=== PATIENT | female | born 1970 | race Caucasian/White ===

== ENCOUNTER 2020-10-16 20:13 | Emergency (ER) | payer BC ==
[~2020-10-16] VITALS: Ht 167.6 cm; Wt 73.6 kg
[2020-10-16 20:18] VITALS: BP 155/84
[2020-10-16] MEDS ORDERED: ASPIRIN CHEWABLE 81 MG TABLET. PO ONE (20:30)
--- NOTE | 2020-10-16 20:32 | PHYS DOC ---
Past History Past Medical History: Asthma, COPD, Hypothyroid Past Surgical History: , Other Additional Past Surgical Histo: thyroid Alcohol Use: None Adult General Chief Complaint Chief Complaint: CHEST PAIN HPI HPI Patient is a 50-year-old female with a past medical history significant for hypothyroidism on levothyroxine who presents with chest pain. States he has been having intermittent sharp chest pain, 6 out of 10 at its worst over the last couple of months. States she cannot identify any aggravating or alleviating factors and/or triggers. 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 States that there is current episode started last night while she was watching TV and has been intermittent since then. States that currently in the emergency department she does not have the pain. States that they are kind of new to the area and do not have a primary care physician and requested some names of some local physicians. Denies any recent travel, illnesses, fevers, shortness of breath, abdominal pain, nausea, vomiting, dysuria, hematuria or blood in the stool. Denies any dyspnea on exertion, orthopnea, PND or edema. Denies any history of VTE. Review of Systems Review of Systems Review of systems otherwise unremarkable except noted in HPI Allergies Allergies Allergies Coded Allergies Type Severity Reaction Last Updated Verified No Known Drug Allergies 10/16/20 No Physical Exam Physical Exam Constitutional: Well developed, well nourished, no acute distress, non-toxic appearance. [] HENT: Normocephalic, atraumatic, bilateral external ears normal, oropharynx moist, no oral exudates, nose normal. [] Eyes: conjunctiva normal, no discharge. [] Neck: Normal range of motion, no tenderness, supple, no stridor. [] Cardiovascular:Heart rate regular rhythm, no murmur [] Lungs & Thorax: Bilateral breath sounds clear to auscultation [] Abdomen: Bowel sounds normal, soft, no tenderness, no masses, no pulsatile masses. [] Skin: Warm, dry, no erythema, no rash. [] Back: , no CVA tenderness. [] Extremities: No tenderness, no cyanosis, no clubbing, ROM intact, no edema. [] Neurologic: Alert and oriented X 3, no focal deficits noted. [] Psychologic: Affect normal, judgement normal, mood normal. [] Current Patient Data Vital Signs Vital Signs Date Time Temp Pulse Resp B/P (MAP) Pulse Ox O2 Delivery O2 Flow Rate FiO2 10/16/20 20:18 98.0 75 16 155/84 (107) 99 Room Air EKG EKG [] Radiology/Procedures Radiology/Procedures [] EXAM: CHEST 1 VIEW History: Chest pain COMPARISON: None available. TECHNIQUE: Single portable radiograph of the chest FINDINGS: The cardiac silhouette is unremarkable. The lungs are clear bilaterally. The costophrenic sulci are clear and well demarcated. IMPRESSION: No radiographic evidence of an acute cardiopulmonary process. Electronically signed by: Layton Strickland MD (10/16/2020 8:46 PM) [id number] Heart Score C/O Chest Pain: Yes HEART Score for Chest Pain: HEART Score for Chest Pain Response (Comments) Value History Slighlty/Non-Suspicious 0 ECG Normal 0 Age >45 - < 65 1 Risk Factors 1 or 2 Risk Factors 1 Troponin < Normal Limit 0 Total 2 Risk Factors: Risk Factors: DM, Current or recent (<one month) smoker, HTN, HLP, family history of CAD, obesity. Risk Scores: Risk Factors: DM, Current or recent (<one month) smoker, HTN, HLP, family history of CAD, obesity. Course & Med Decision Making Course & Med Decision Making Patient is a 50-year-old female who presents with 2 months of intermittent chest discomfort Vital signs not concerning. Physical exam noted above. EKG noted above and not concerning for STEMI. Chest x-ray not concerning. Heart score 2. Low risk Wells. PERC negative. Patient remained asymptomatic in the emergency department. Vital signs normal. Discussed all findings with family. Patient stated that she was feeling well and was ready to be discharged home. Discussed all findings with family and advised to follow-up in the morning with primary care physician to discuss ED visit and symptoms over the last couple of months and need for stress test as an outpatient. Gave strict return precautions to the ED. Patient grateful, verbalized understanding agree with plan of discharge. [] Dragon Disclaimer Dragon Disclaimer This electronic medical record was generated, in whole or in part, using a voice recognition dictation system. Departure Departure: Impression: Primary Impression: Chest pain Disposition: HOME / SELF CARE / HOMELESS Condition: GOOD Referrals: JUJU CEDENO MD Patient Instructions: Chest Pain (Nonspecific) Additional Instructions: Thank you for coming into the emergency department tonight and allowing us to take care of you. Please read all of the attached information very carefully. As discussed all your vital signs, labs and diagnostics were reassuring that at least at this time it did not appear you are having an emergency. But as discussed, this does not mean that there could be something else going on that needs follow-up. Please call your primary care physician first thing in the morning to update on ED visit and set up a follow-up as soon as you can to discuss need for further outpatient evaluation, treatment and stress test as well as echocardiogram. Please come back to the emergency department immediately with new or concerning symptoms as discussed. BANDAR LESTER MD Oct 16, 2020 20:32
--- NOTE | 2020-10-16 20:48 | RAD ---
EXAM: CHEST 1 VIEW History: Chest pain COMPARISON: None available. TECHNIQUE: Single portable radiograph of the chest FINDINGS: The cardiac silhouette is unremarkable. The lungs are clear bilaterally. The costophrenic sulci are clear and well demarcated. IMPRESSION: No radiographic evidence of an acute cardiopulmonary process. Electronically signed by: Layton Strickland MD (10/16/2020 8:46 PM) [id number]
[2020-10-16 21:28] LABS: HEMATOCRIT 36.6 % (36.0-47.0); HEMOGLOBIN 12.2 g/dL (12.0-15.5); RED BLOOD COUNT 3.94 x10^6/uL (3.50-5.40); RED CELL DISTRIBUTION WIDTH 12.5 % (11.5-14.5); WHITE BLOOD COUNT 7.4 x10^3/uL (4.0-11.0)
[2020-10-16 21:55] LABS: CALCIUM 8.6 mg/dL (8.5-10.1); CREATININE 0.7 mg/dL (0.6-1.0); GFR 88.9; POTASSIUM 3.6 mmol/L (3.5-5.1)
--- NOTE | 2020-10-17 06:24 | EKG ---
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
== END 2020-10-16 22:32 | disposition home or self-care (01) ==
LOC: ER 20:13
DX: R07.89 Other chest pain (principal); J44.9 Chronic obstructive pulmonary disease, unspecified
CPT/HCPCS: 36415; 71045; 80048; 84484; 85027; 85379; 93005; 99285-25